=== PATIENT | male | born 1975 | race Caucasian/White ===

== ENCOUNTER 2017-12-13 14:07 | Emergency (ER) | payer BC ==
[~2017-12-13 14:07] MED LIST: LOSA25TA50 PO; METF-421 PO; MONT10TA PO
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
[2017-12-13] MEDS ORDERED: NS(*) 0.9% 1000 ML BAG 1,000 ML IV ONE (14:35)
[2017-12-13 14:48] LABS: PLATELET COUNT, AUTOMATED 335 K/uL (150-450)
--- NOTE | 2017-12-13 14:52 | EKG ---
FACILITY: [facility] PATIENT NAME: EMMANUEL SMALL : [id number] MR: [id number] V: [id number] EXAM DATE: ORDERING PHYSICIAN: AGNES [place] TECHNOLOGIST: JACINTA Test Reason : DIZZINESS Blood Pressure : / mmHG Vent. Rate : 089 BPM Atrial Rate : 089 BPM P-R Int : 152 ms QRS Dur : 100 ms QT Int : 354 ms P-R-T Axes : 053 051 052 degrees QTc Int : 430 ms Normal sinus rhythm with sinus arrhythmia Normal ECG No previous ECGs available Confirmed by LILY GREENE ([id number]) on 12/14/2017 6:28:48 AM Referred By: MIROSLAVA Confirmed By:LILY GREENE
--- NOTE | 2017-12-13 15:18 | RADIOLOGY IMAGING REPORT ---
FACILITY: [facility] PATIENT NAME: De Dominguez : 1975 MR: [id number] V: [id number] EXAM DATE: ORDERING PHYSICIAN: AGNES [place] TECHNOLOGIST: [place] [facility] [place]: De Dominguez : 1975 Visit/Account:[id number] Date of Sevice: 12/13/2017 EXAMINATION: CT head without IV contrast HISTORY: Dizziness. TECHNIQUE: Axial CT images of the head were obtained from the vertex to the skull base without IV c ontrast, with coronal and sagittal 2D reconstructed images. One of the following dose optimization techniques was utilized in the performance of this exam: Autom ated exposure control; adjustment of the mA and/or kV according to the patient's size; or use of an i terative reconstruction technique. Specific details can be referenced in the facility's radiology C T exam operational policy. COMPARISON: None. FINDINGS: The intracranial contents are unremarkable. No CT evidence of intracranial hemorrhage, mass lesion, or acute infarct. No midline shift or extra-axial fluid collections. Hernandes-white differentiation is maintained. The calvarium is intact. The visualized paranasal sinuses and mastoid air cells are unopacified. IMPRESSION: Unremarkable noncontrast head CT. Report Dictated By: Hung Oconnell MD at 12/13/2017 3:11 PM Report E-Signed By: Hung Oconnell MD at 12/13/2017 3:14 PM WSN:[id number]
--- NOTE | 2017-12-13 15:44 | RADIOLOGY IMAGING REPORT ---
[facility] PATIENT NAME: De Dominguez : 1975 MR: [id number] V: [id number] EXAM DATE: ORDERING PHYSICIAN: AGNES [place] TECHNOLOGIST: Location: [facility] - [place] Patient: De Dominguez : 1975 Visit/Account:[id number] Date of Sevice: 12/13/2017 Examination: ACUTE ABDOMEN SERIES 3 VIEW Comparison: None. History: Left lower quadrant abdominal pain. Findings: No consolidation, nodule, or peribronchial inflammation. No pneumothorax, edema, or effusio n. Cardiac and hilar contour size is normal. No pneumoperitoneum. Bowel gas pattern is unremarkable. Small amount of stool in the colon. No suspic ious soft tissue calcifications. Cholecystectomy clips. Osseous structures are intact. IMPRESSION: Negative chest and abdomen. Report Dictated By: Pedrito Arnold MD at 12/13/2017 3:39 PM Report E-Signed By: Pedrito Arnold MD at 12/13/2017 3:40 PM WSN:[id number]
[2017-12-13] MEDS ORDERED: SCOPOLAMINE 1.5 MG PATCH TD ONE (15:55)
[2017-12-13] MEDS ORDERED: MECLIZINE HCL 25 MG TAB PO ONE (15:55)
[2017-12-13 16:44] VITALS: BP 117/78
[2017-12-13] MEDS ORDERED: SCOP1PAT16 TD (16:47)
[2017-12-13] MEDS ORDERED: MECL25TA9 PO (16:47)
[2017-12-14] MEDS ORDERED: Work Note (11:20)
== END 2017-12-13 17:00 | disposition home or self-care (01) ==
LOC: ER 14:15
DX: E11.9 Type 2 diabetes mellitus without complications (principal); Z79.84 Long term (current) use of oral hypoglycemic drugs; Z79.899 Other long term (current) drug therapy; Z87.891 Personal history of nicotine dependence
CPT/HCPCS: 70450; 74022; 81001; 85025; 96360; 99284; J7030; J8597; 82040; 82247; 82310; 82374; 82435; 82565; 82947; 84075; 84132; 84155; 84295; 84450; 84460; 84520; 93005

== ENCOUNTER → 2017-12-17 | Outpatient (CLI) | payer BC ==
[~2017-12-17] MED LIST changes: +FERR-53 PO; +MECL25TA9 PO; +PANT40TA65 PO; +SCOP1PAT16 TD; +Work Note
[2017-12-17 09:30] LABS: PLATELET COUNT, AUTOMATED 281 K/uL (150-450)
== END ==
LOC: LAB 09:03
PROVIDERS: ATTEND Nurse Practitioner Family
DX: E11.9 Type 2 diabetes mellitus without complications (principal); D64.9 Anemia, unspecified
CPT/HCPCS: 36415; 82040; 82247; 82310; 82374; 82435; 82565; 82728; 82947; 83036; 83540; 83550; 84075; 84132; 84155; 84295; 84450; 84460; 84520; 85025

== ENCOUNTER → 2017-12-21 | Outpatient (CLI) | payer BC ==
[2017-12-21 08:12] LABS: PLATELET COUNT, AUTOMATED 345 K/uL (150-450)
[2017-12-21 08:31] LABS: LDL CHOLESTEROL 88 mg/dl
== END ==
LOC: LAB 07:49
PROVIDERS: ATTEND Nurse Practitioner Family
DX: E11.9 Type 2 diabetes mellitus without complications (principal); R42 Dizziness and giddiness; D64.9 Anemia, unspecified; R10.13 Epigastric pain; R74.8 Abnormal levels of other serum enzymes
CPT/HCPCS: 80074; 82040; 82043; 82150; 82247; 82310; 82374; 82435; 82465; 82565; 82947; 83690; 83718; 84075; 84132; 84155; 84295; 84443; 84450; 84460; 84478; 84520; 85025; 87338

== ENCOUNTER → 2017-12-22 | Outpatient (CLI) | payer BC ==
[2017-12-22 10:17] LABS: INR 0.97
== END ==
LOC: LAB 09:52
PROVIDERS: ATTEND Nurse Practitioner Family
DX: R74.8 Abnormal levels of other serum enzymes (principal)
CPT/HCPCS: 36415; 85610; 85730; 86706; 86707; 87340; 87350

== ENCOUNTER → 2017-12-29 | Outpatient (CLI) | payer BC ==
[~2017-12-29] MED LIST changes: +ALB18R IH; +ATOR20TA65 PO; +BLOO-1322 MC; +DULO30CA6 PO; +LISI2.5T60 PO
--- NOTE | 2017-12-29 09:37 | RADIOLOGY IMAGING REPORT ---
FACILITY: [facility] PATIENT NAME: De Dominguez : 1975 MR: [id number] V: [id number] EXAM DATE: ORDERING PHYSICIAN: MILIND RUIZ TECHNOLOGIST: Location: Patient: De Dominguez : 1975 Visit/Account:[id number] Date of Sevice: 12/29/2017 Limited abdominal ultrasound of the right upper quadrant Indication: Elevated liver function tests. Comparison: None available Findings There is diffuse increased echogenicity of the liver parenchyma compatible with diffuse fatty liver. This limits evaluation for focal lesions. No intrahepatic biliary dilatation is seen. Liver is nor mal in size measuring 14.8 cm in greatest sagittal length. No perihepatic ascites. There is normal hepatopedal portal venous flow. There has been previous cholecystectomy. Common duct measures 5.9 mm in maximum diameter with no evidence of shadowing stone. Abdominal aorta and IVC are patent and unremarkable. The right kidney is normal in size, contour, and echotexture and measures 9.9 cm in length. The head and proximal body of the pancreas is unremarkable. The distal body and tail is obscured by o verlying bowel gas. IMPRESSION: 1. Diffuse fatty liver. 2. Prior cholecystectomy. Report Dictated By: Josh Guzman at 12/29/2017 9:30 AM Report E-Signed By: Josh Guzman at 12/29/2017 9:33 AM WSN:[email or web address]
== END ==
LOC: US 03:34
PROVIDERS: ATTEND Nurse Practitioner Family
DX: K76.0 Fatty (change of) liver, not elsewhere classified (principal); Z90.49 Acquired absence of other specified parts of digestive tract
CPT/HCPCS: 76705

== ENCOUNTER → 2017-12-31 | Outpatient (CLI) | payer BC | LOC: LAB 14:10 | PROVIDERS: ATTEND Nurse Practitioner Family | DX: R35.0 Frequency of micturition (principal) | CPT/HCPCS: 81001; 87491; 87591 ==

== ENCOUNTER → 2018-04-22 | Outpatient (CLI) | payer OTHER ==
[~2018-04-22] MED LIST changes: +DULO60CA7 PO; +GLIM2TAB43 PO; -LOSA25TA50 PO; +LOSA25TA57 PO; -METF-421 PO; +METF-452 PO
[2018-04-22 15:55] LABS: LDL CHOLESTEROL 100 mg/dl
[2018-04-22 16:23] LABS: PLATELET COUNT, AUTOMATED 245 K/uL (150-450)
== END ==
LOC: LAB 15:10
PROVIDERS: ATTEND Nurse Practitioner Family
DX: E11.9 Type 2 diabetes mellitus without complications (principal); E78.5 Hyperlipidemia, unspecified
CPT/HCPCS: 36415; 82040; 82247; 82310; 82374; 82435; 82465; 82565; 82728; 82947; 83036; 83540; 83550; 83718; 84075; 84132; 84155; 84295; 84443; 84450; 84460; 84478; 84520; 85025

== ENCOUNTER 2018-05-21 12:56 | Outpatient (CLI) | payer OTHER ==
--- NOTE | 2018-05-21 14:21 | Medical Nutrition Therapy ---
Nutritional Education Nutrition Education Topic: Diabetic Nutrition Learning Readiness: Eager Teaching Methods: Discussion, Handout Response to Teaching: Return demonstration, Verbalize understanding Teaching Recipient: Patient Nutrition Counseling: RD provided 1 hours of medical nutrition therapy for diabetes nutrition. Education focused on food that contain CHO, foods that do not contain CHO, fast food/eating out, the importance of consistent CHO intake throughout the day, and the importance of eating 3-6 small meals per day[address] RD provided handout on diabetes nutrition meal planning, and a handout with suggested meals from restaurants. Pt clearly understood foods that contain foods that contain CHO, and is making plans to help making eating out less possible. -[facility] Nutrition Monitoring & Eval RD Patient Assessment Time: [address] Assessment Type: RD Education Nutritional Comment: RD provided 1 hours of medical nutrition therapy for diabetes nutrition. RD provided 1 hours of medical nutrition therapy for diabetes nutrition. Education focused on food that contain CHO, foods that do not contain CHO, fast food/eating out, the importance of consistent CHO intake throughout the day, and the importance of eating 3-6 small meals per day. RD provided handout on diabetes nutrition meal planning, and a handout with suggested meals from restaurants. Pt clearly understood foods that contain foods that contain CHO, and is making plans to help making eating out less possible. -[facility] Copies To Copies to: MILIND RUIZ APRN-C ; KENDAL BILL May 21, 2018 14:21
[2018-05-21] MEDS ORDERED: GLIM2TAB43 PO (16:05)
== END 2018-06-23 15:11 | disposition home or self-care (01) ==
LOC: DIET 12:56
PROVIDERS: ATTEND Nurse Practitioner Family
DX: E11.9 Type 2 diabetes mellitus without complications (principal); K76.0 Fatty (change of) liver, not elsewhere classified
CPT/HCPCS: G0108 ×2

== ENCOUNTER → 2018-06-21 | Outpatient (CLI) | payer OTHER ==
[2018-06-21 15:00] LABS: PLATELET COUNT, AUTOMATED 281 K/uL (150-450)
== END ==
LOC: LAB 14:31
PROVIDERS: ATTEND Nurse Practitioner Family
DX: D50.9 Iron deficiency anemia, unspecified (principal); E11.9 Type 2 diabetes mellitus without complications
CPT/HCPCS: 36415; 82728; 83036; 83540; 83550; 85025

== ENCOUNTER → 2018-07-22 | Outpatient (CLI) | payer OTHER ==
[~2018-07-22] MED LIST changes: +GLIM4TAB50 PO; +LISI20TA29 PO; +TRIA15CR40 TP
== END ==
LOC: RESP 00:02
PROVIDERS: ATTEND Nurse Practitioner Family
DX: R06.2 Wheezing (principal)
CPT/HCPCS: 94060; 94726; 94729

== ENCOUNTER → 2018-07-23 | Outpatient (CLI) | payer OTHER ==
--- NOTE | 2018-07-23 12:59 | RADIOLOGY IMAGING REPORT ---
FACILITY: PATIENT NAME: De Dominguez : 1975 MR: [id number] V: [id number] EXAM DATE: ORDERING PHYSICIAN: MILIND RUIZ TECHNOLOGIST: Location: [facility] - [place] Patient: De Dominguez : 1975 Visit/Account:[id number] Date of Sevice: 07/23/2018 Right foot, three views, and left foot, three views. HISTORY: Bilateral foot pain. COMPARISON: None. A moderate to severe hallux valgus metatarsus varus alignment is present bilaterally. A metal plate and screws are present in the left first metatarsal. The lateral aspect of the left fifth metatarsal head has probably been resected. Several toes are mildly extended at the MTP joints and flexed at t he IP joints bilaterally. Mild joint space narrowing and small subchondral cysts are present in the left first metatarsal phalangeal joint. Small to moderate-sized spurs are present along the plantar and dorsal aspects of each calcaneus. No acute fractures. IMPRESSION: Bilateral hallux valgus metatarsus varus. Postsurgical changes in the left first and fifth metatarsals. Moderate arthropathy of the left first MTP joint. Bilateral hammertoes. Bilateral calcaneal spurs. Report Dictated By: Rahul Mccabe MD at 07/23/2018 12:49 PM Report E-Signed By: Rahul Mccabe MD at 07/23/2018 12:54 PM WSN:[email or web address]
--- NOTE | 2018-07-23 12:59 | RADIOLOGY IMAGING REPORT ---
[facility] PATIENT NAME: De Dominguez : 1975 MR: [id number] V: [id number] EXAM DATE: ORDERING PHYSICIAN: MILIND RUIZ TECHNOLOGIST: Location: [facility] Patient: De Dominguez : 1975 Visit/Account:[id number] Date of Sevice: 07/23/2018 Right foot, three views, and left foot, three views. HISTORY: Bilateral foot pain. COMPARISON: None. A moderate to severe hallux valgus metatarsus varus alignment is present bilaterally. A metal plate and screws are present in the left first metatarsal. The lateral aspect of the left fifth metatarsal head has probably been resected. Several toes are mildly extended at the MTP joints and flexed at t he IP joints bilaterally. Mild joint space narrowing and small subchondral cysts are present in the left first metatarsal phalangeal joint. Small to moderate-sized spurs are present along the plantar and dorsal aspects of each calcaneus. No acute fractures. IMPRESSION: Bilateral hallux valgus metatarsus varus. Postsurgical changes in the left first and fifth metatarsals. Moderate arthropathy of the left first MTP joint. Bilateral hammertoes. Bilateral calcaneal spurs. Report Dictated By: Rahul Mccabe MD at 07/23/2018 12:49 PM Report E-Signed By: Rahul Mccabe MD at 07/23/2018 12:54 PM WSN:[email or web address]
== END ==
LOC: RAD 11:14
PROVIDERS: ATTEND Nurse Practitioner Family
DX: M20.32 Hallux varus (acquired), left foot (principal); M20.31 Hallux varus (acquired), right foot; Z98.890 Other specified postprocedural states; M77.32 Calcaneal spur, left foot; M77.31 Calcaneal spur, right foot; M20.42 Other hammer toe(s) (acquired), left foot; M20.41 Other hammer toe(s) (acquired), right foot

== ENCOUNTER → 2018-09-09 | Outpatient (CLI) | payer OTHER ==
[~2018-09-09] MED LIST changes: +ATOR10TA24 PO; +SIL50 PO
--- NOTE | 2018-09-09 14:40 | EKG ---
FACILITY: [facility] - [place] PATIENT NAME: EMMANUEL SMALL : [id number] MR: [id number] V: [id number] EXAM DATE: ORDERING PHYSICIAN: LUCINA DUQUE TECHNOLOGIST: LV Test Reason : EKG Blood Pressure : / mmHG Vent. Rate : 100 BPM Atrial Rate : 100 BPM P-R Int : 150 ms QRS Dur : 100 ms QT Int : 332 ms P-R-T Axes : 061 067 049 degrees QTc Int : 428 ms Normal sinus rhythm Normal ECG When compared with ECG of 13-DEC-2017 14:43, No significant change was found Confirmed by TEAJ PAYNE ([id number]) on 09/10/2018 1:23:57 PM Referred By: Confirmed By:TEJA PAYNE
== END ==
LOC: RESP 13:39
PROVIDERS: ATTEND Surgery
DX: E11.9 Type 2 diabetes mellitus without complications (principal)